=== PATIENT | female | born 1980 | race Caucasian/White ===

== ENCOUNTER → 2017-02-13 | Outpatient (CLI) | payer OTHER | LOC: MW.CHFP 14:09 | PROVIDERS: ATTEND Emergency Medicine | DX: E03.9 Hypothyroidism, unspecified (principal) | CPT/HCPCS: 36415; 84443 ==

== ENCOUNTER 2019-02-05 05:14 | Inpatient (IN) | payer OTHER ==
[2019-02-05] MEDS ORDERED: Methylergonovine 0.2 MG/1 ML Amp IM PRN (05:21)
[2019-02-05] MEDS ORDERED: Water For Irrigation,Sterile 1,000 ML Container IRR PRN (05:21)
[2019-02-05] MEDS ORDERED: Lidocaine 1% 50 ML MDV INJECT PRN (05:21)
[2019-02-05] MEDS ORDERED: Butorphanol 1 MG/ML SDV IVPUSH PRN (05:21)
[2019-02-05] MEDS ORDERED: Nalbuphine 10 MG/1 ML Vial IVPUSH PRN (05:21)
[2019-02-05] MEDS ORDERED: Misoprostol 200 MCG Tab PO PRN (05:21)
[2019-02-05] MEDS ORDERED: Carboprost Tromethamine 250 MCG/1 ML Amp IM PRN (05:21)
[2019-02-05] MEDS ORDERED: Sodium Chloride 0.9% 10 ML SDV IV PRN (05:21)
[2019-02-05] MEDS ORDERED: Ondansetron 4 MG/2 ML SDV IV PRN (05:21)
[2019-02-05] MEDS ORDERED: Terbutaline 1 MG/ML SDV SUBCUT PRN (05:21)
[2019-02-05] MEDS ORDERED: Tranexamic Acid 1,000 MG in Sodium Chloride 0.9% 100 ML IV PRN (05:21)
[2019-02-05] MEDS ORDERED: Misoprostol 25 MCG (1/4 of 100 MCG) Tab VAG PRN ×2 (05:21)
[2019-02-05] MEDS ORDERED: Sodium Chloride 0.9% 10 ML Syringe FLUSH PRN (05:21)
[2019-02-05] MEDS ORDERED: Sodium Chloride 0.9% 2.5 ML Syringe FLUSH PRN (05:21)
[2019-02-05] MEDS ORDERED: Misoprostol 25 MCG (1/4 of 100 MCG) Tab PO ONE (05:28)
[2019-02-05] MEDS ORDERED: Oxytocin/0.9 % Sodium Chloride 30 UNIT/500 ML BAG IV SCH ×2 (05:30)
--- NOTE | 2019-02-05 09:56 | PCM.LDHP ---
L&D History of Present Illness - General Date of Service: 02/05/19 Admit Problem/Dx: Patient Status Order with Admit Dx/Problem 02/05/19 05:21 Patient Status [ADT] Routine Admission Diagnosis/Problem Admission Diagnosis/Problem Source of Information: Patient History Limitations: Reports: No Limitations - History of Present Illness Improves with: Reports: None Worsens with: Reports: None Associated Symptoms: Reports: N - Related Data Allergies/Adverse Reactions: Allergies Allergy/AdvReac Type Severity Reaction Status Date / Time No Known Allergies Allergy Verified 11/04/18 09:56 Home Medications: Home Meds Levothyroxine Sodium 1 tab PO DAILY 01/01/16 [History] Past Medical History - Past Health History Medical/Surgical History: Denies Medical/Surgical History 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 Musculoskeletal History: fracture on both wrist Psychiatric History: Reports: Depression Other Psychiatric History: post depression X3 Endocrine/Metabolic History: Reports: Hypothyroidism - Infectious Disease History Infectious Disease History: Reports: Chicken Pox Social & Family History - Family History Family Medical History: Noncontributory - Tobacco Use Smoking Status *Q: Never Smoker Second Hand Smoke Exposure: No - Caffeine Use Caffeine Use: Reports: None - Recreational Drug Use Recreational Drug Use: No H&P Review of Systems - Review of Systems: Review Of Systems: See Below General: Reports: No Symptoms HEENT: Reports: No Symptoms Pulmonary: Reports: No Symptoms Cardiovascular: Reports: No Symptoms Gastrointestinal: Reports: No Symptoms Genitourinary: Reports: No Symptoms Musculoskeletal: Reports: No Symptoms Skin: Reports: No Symptoms Psychiatric: Reports: No Symptoms Neurological: Reports: No Symptoms Hematologic/Lymphatic: Reports: No Symptoms Immunologic: Reports: No Symptoms L&D Exam - Exam Exam: See Below - Vital Signs Weight: 125.191 kg - OB Specific Fundal Height In cm: 38 Contraction Intensity: Mild Movement: Active Heart Tones: Present Presentation: Vertex - Gonzáles Score Gonzáles Score Cervix Position: Midposition Gonzáles Score Consistency: Medium Gonzáles Score Effacement: 51-70% Gonzáles Score Dilation: 1-2 cm Gonzáles Score Infant's Station: -2 Gonzáles Score Total: 6 - Exam General: Alert, Oriented HEENT: PERRLA, Conjunctiva Clear, EACs Clear, EOMI, Hearing Intact, Mucosa Moist & [place], Nares Patent, Normal Nasal Septum, Posterior Pharynx Clear, TMs Clear Neck: Supple, Trachea Midline Lungs: Clear to Auscultation, Normal Respiratory Effort Cardiovascular: Regular Rate, Regular Rhythm GI/Abdominal Exam: Normal Bowel Sounds, Soft, Non-Tender, No Organomegaly, No Distention, No Abnormal Bruit, No Mass, Pelvis Stable Rectal Exam: Normal Exam, Normal Rectal Tone Genitourinary: Normal external exam, Normal bimanual exam, Normal speculum exam Back Exam: Normal Inspection, Full Range of Motion Extremities: Normal Inspection, Normal Range of Motion, Non-Tender, No Pedal Edema, Normal Capillary Refill Skin: Warm, Dry, Intact Neurological: Cranial Nerves Intact, Reflexes Equal Bilateral Psychiatric: Alert, Normal Affect, Normal Mood - Patient Data Lab Results Last 24 hrs: Laboratory Results - last 24 hr 02/05/19 02/05/19 Range/Units 06:00 06:00 WBC 11.48 H (4.0-11.0) K/uL RBC 3.87 L (4.30-5.90) M/uL Hgb 11.8 L (12.0-16.0) g/dL Hct 35.6 L (36.0-46.0) % MCV 92.0 (80.0-98.0) fL MCH 30.5 (27.0-32.0) pg MCHC 33.1 (31.0-37.0) g/dL RDW Std Deviation 54.9 (28.0-62.0) fl RDW Coeff of Danyell 16 H (11.0-15.0) % Plt Count 171 (150-400) K/uL MPV 11.20 (7.40-12.00) fL Nucleated RBC % 0.0 /100WBC Nucleated RBCs # 0 K/uL Blood Type A POSITIVE Antibody Screen NEGATIVE Result Diagrams: 02/05/19 06:00 Problem List Initiated/Reviewed/Updated: Yes Orders Last 24hrs: Active Orders 24 hr Category Date Time Status Patient Status [ADT] Routine ADT 02/05/19 05:21 Active Bedrest Bathroom Privileges [RC] ASDIRECTED Care 02/05/19 05:21 Active Communication Order [RC] ASDIRECTED Care 02/05/19 05:21 Active Communication Order [RC] ASDIRECTED Care 02/05/19 05:21 Active Communication Order [RC] ASDIRECTED Care 02/05/19 05:21 Active May Shower [RC] ASDIRECTED Care 02/05/19 05:21 Active Notify Provider [RC] PRN Care 02/05/19 05:21 Active Notify Provider [RC] PRN Care 02/05/19 05:21 Active Notify Provider [RC] PRN Care 02/05/19 05:21 Active Notify Provider [RC] STAT Care 02/05/19 05:21 Active Oxygen Therapy [RC] ASDIRECTED Care 02/05/19 05:21 Active Up ad Yue [RC] ASDIRECTED Care 02/05/19 05:21 Active Vital Signs [RC] PER UNIT ROUTINE Care 02/05/19 05:21 Active Vital Signs [RC] PER UNIT ROUTINE Care 02/05/19 05:21 Active Regular Diet [DIET] Diet 02/05/19 Breakfast Active Butorphanol [Stadol] Med 02/05/19 05:21 Active 1 mg IVPUSH Q1H PRN Carboprost Tromethamine [Hemabate DS] Med 02/05/19 05:21 Active 250 mcg IM ASDIRECTED PRN Lactated Ringers [Ringers, Lactated] 1,000 ml Med 02/05/19 05:30 Active IV ASDIRECTED Lidocaine 1% [Xylocaine 1%] Med 02/05/19 05:21 Active 50 ml INJECT ONETIME PRN Methylergonovine [Methergine] Med 02/05/19 05:21 Active 0.2 mg IM ASDIRECTED PRN Nalbuphine [Nubain] Med 02/05/19 05:21 Active 10 mg IVPUSH Q1H PRN Ondansetron [Zofran] Med 02/05/19 05:21 Active 4 mg IV Q6H PRN Oxytocin/0.9 % Sodium Chloride [Oxytocin 30 Unit/500 ML Med 02/05/19 05:30 Active -NS] 30 unit in 500 ml IV TITRATE Oxytocin/0.9 % Sodium Chloride [Oxytocin 30 Unit/500 ML Med 02/05/19 05:30 Active -NS] 30 unit in 500 ml IV TITRATE Sodium Chloride 0.9% [Normal Saline] Med 02/05/19 05:21 Active 10 ml IV ASDIRECTED PRN Sodium Chloride 0.9% [Saline Flush] Med 02/05/19 05:21 Active 10 ml FLUSH ASDIRECTED PRN Sodium Chloride 0.9% [Saline Flush] Med 02/05/19 05:21 Active 2.5 ml FLUSH ASDIRECTED PRN Terbutaline [Brethine] Med 02/05/19 05:21 Active 0.25 mg SUBCUT ASDIRECTED PRN Tranexamic Acid [Cyklokapron] 1,000 mg Med 02/05/19 05:21 Active Sodium Chloride 0.9% [Normal Saline] 100 ml IV ONETIME Water For Irrigation,Sterile [Sterile Water for Med 02/05/19 05:21 Active Irrigation] 1,000 ml IRR ASDIRECTED PRN miSOPROStol [Cytotec] Med 02/05/19 05:21 Active 200 mcg PO ONETIME PRN miSOPROStol [Cytotec] Med 02/05/19 05:21 Active 25 mcg VAG ONETIME PRN miSOPROStol [Cytotec] Med 02/05/19 05:21 Active 25 mcg VAG Q4H PRN Scalp Electrode [WOMSER] Per Unit Routine Oth 02/05/19 05:21 Ordered Medication Administration Instruction [OM.PC] Q3H Oth 02/05/19 05:30 Ordered Peripheral IV Insertion Adult [OM.PC] Routine Oth 02/05/19 05:21 Ordered Resuscitation Status Routine Resus Stat 02/05/19 05:21 Ordered Medication Orders Butorphanol Tartrate (Stadol) 1 mg IVPUSH Q1H PRN PRN Reason: Pain Carboprost Tromethamine (Hemabate Ds) 250 mcg IM ASDIRECTED PRN PRN Reason: Post Hemorrhage Lactated Ringer's (Ringers, Lactated) 1,000 mls @ 150 mls/hr IV ASDIRECTED JENNIFER Oxytocin/Sodium Chloride (Oxytocin 30 Unit/500 Ml-Ns) 30 unit in 500 mls @ 999 mls/hr IV TITRATE JENNIFER Oxytocin/Sodium Chloride (Oxytocin 30 Unit/500 Ml-Ns) 30 unit in 500 mls @ 2 mls/hr IV TITRATE JENNIFER; Protocol Tranexamic Acid 1,000 mg/ (Sodium Chloride) 110 mls @ 660 mls/hr IV ONETIME PRN PRN Reason: Bleeding Lidocaine HCl (Xylocaine 1%) 50 ml INJECT ONETIME PRN PRN Reason: Laceration repair Methylergonovine Maleate (Methergine) 0.2 mg IM ASDIRECTED PRN PRN Reason: Post Hemorrhage Misoprostol (Cytotec) 200 mcg PO ONETIME PRN PRN Reason: Post Hemorrhage Misoprostol (Cytotec) 25 mcg VAG ONETIME PRN PRN Reason: Cervical Ripening Last Admin: 02/05/19 06:33 Dose: 25 mcg Misoprostol (Cytotec) 25 mcg VAG Q4H PRN PRN Reason: Cervical Ripening Nalbuphine HCl (Nubain) 10 mg IVPUSH Q1H PRN PRN Reason: Pain (severe 7-10) Ondansetron HCl (Zofran) 4 mg IV Q6H PRN PRN Reason: Nausea/Vomiting Sodium Chloride (Saline Flush) 10 ml FLUSH ASDIRECTED PRN PRN Reason: Keep Vein Open Sodium Chloride (Saline Flush) 2.5 ml FLUSH ASDIRECTED PRN PRN Reason: Keep Vein Open Sodium Chloride (Normal Saline) 10 ml IV ASDIRECTED PRN PRN Reason: IV Use Sterile Water (Sterile Water For Irrigation) 1,000 ml IRR ASDIRECTED PRN PRN Reason: delivery Terbutaline Sulfate (Brethine) 0.25 mg SUBCUT ASDIRECTED PRN PRN Reason: Tacysystole Assessment/Plan Comment:: IUP 38 wks admitted for elective induction because of advance maternal age.
--- NOTE | 2019-02-05 11:26 | PCM.PREANE ---
Preanesthetic Assessment - Anesthesia/Transfusion/Family Hx Anesthesia History: No Prior Anesthesia Family History of Anesthesia Reaction: No Transfusion History: No Prior Transfusion(s) - Review of Systems General: No Symptoms Pulmonary: No Symptoms Cardiovascular: No Symptoms Gastrointestinal: No Symptoms Neurological: No Symptoms Other: Reports: None - Physical Assessment Height: 5 ft 4 in Weight: 125.191 kg ASA Class: 2 Mental Status: Alert & Oriented x3 Airway Class: Mallampati = 2 Dentition: Reports: Normal Dentition Thyro-Mental Finger Breadths: 3 Mouth Opening Finger Breadths: 3 ROM/Head Extension: Full Lungs: Clear to Auscultation, Normal Respiratory Effort Cardiovascular: Regular Rate, Regular Rhythm - Lab Values: Laboratory Last Values WBC 11.48 K/uL (4.0-11.0) H 02/05/19 06:00 RBC 3.87 M/uL (4.30-5.90) L 02/05/19 06:00 Hgb 11.8 g/dL (12.0-16.0) L 02/05/19 06:00 Hct 35.6 % (36.0-46.0) L 02/05/19 06:00 MCV 92.0 fL (80.0-98.0) 02/05/19 06:00 MCH 30.5 pg (27.0-32.0) 02/05/19 06:00 MCHC 33.1 g/dL (31.0-37.0) 02/05/19 06:00 RDW Std Deviation 54.9 fl (28.0-62.0) 02/05/19 06:00 RDW Coeff of Danyell 16 % (11.0-15.0) H 02/05/19 06:00 Plt Count 171 K/uL (150-400) 02/05/19 06:00 MPV 11.20 fL (7.40-12.00) 02/05/19 06:00 Nucleated RBC % 0.0 /100WBC 02/05/19 06:00 Nucleated RBCs # 0 K/uL 02/05/19 06:00 Blood Type A POSITIVE 02/05/19 06:00 Antibody Screen NEGATIVE 02/05/19 06:00 - Allergies Allergies/Adverse Reactions: Allergies Allergy/AdvReac Type Severity Reaction Status Date / Time No Known Allergies Allergy Verified 11/04/18 09:56 - Acknowledgements Anesthesia Type Planned: Epidural Pt an Appropriate Candidate for the Planned Anesthesia: Yes Alternatives and Risks of Anesthesia Discussed w Pt/Guardian: Yes Pt/Guardian Understands and Agrees with Anesthesia Plan: Yes PreAnesthesia Questionnaire - Past Health History Medical/Surgical History: Denies Medical/Surgical History HEENT History: Reports: None Cardiovascular History: Reports: None Respiratory History: Reports: None Gastrointestinal History: Reports: GERD Genitourinary History: Reports: None 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 LMP (Approximate): Other Musculoskeletal History: fracture on both wrist Neurological History: Reports: None Psychiatric History: Reports: Depression Other Psychiatric History: post depression X3 Endocrine/Metabolic History: Reports: Hypothyroidism, Obesity/BMI 30+ Hematologic History: Reports: None Immunologic History: Reports: None Oncologic (Cancer) History: Reports: None Dermatologic History: Reports: None - Infectious Disease History Infectious Disease History: Reports: Chicken Pox - SUBSTANCE USE Smoking Status *Q: Never Smoker Second Hand Smoke Exposure: No Recreational Drug Use History: No - HOME MEDS Home Medications: Home Meds Levothyroxine Sodium 1 tab PO DAILY 01/01/16 [History] - CURRENT (IN HOUSE) MEDS Current Meds: Current Medications Butorphanol Tartrate (Stadol) 1 mg IVPUSH Q1H PRN PRN Reason: Pain Carboprost Tromethamine (Hemabate Ds) 250 mcg IM ASDIRECTED PRN PRN Reason: Post Hemorrhage Lactated Ringer's (Ringers, Lactated) 1,000 mls @ 150 mls/hr IV ASDIRECTED JENNIFER Oxytocin/Sodium Chloride (Oxytocin 30 Unit/500 Ml-Ns) 30 unit in 500 mls @ 999 mls/hr IV TITRATE JENNIFER Oxytocin/Sodium Chloride (Oxytocin 30 Unit/500 Ml-Ns) 30 unit in 500 mls @ 2 mls/hr IV TITRATE JENNIFER; Protocol Tranexamic Acid 1,000 mg/ (Sodium Chloride) 110 mls @ 660 mls/hr IV ONETIME PRN PRN Reason: Bleeding Lidocaine HCl (Xylocaine 1%) 50 ml INJECT ONETIME PRN PRN Reason: Laceration repair Methylergonovine Maleate (Methergine) 0.2 mg IM ASDIRECTED PRN PRN Reason: Post Hemorrhage Misoprostol (Cytotec) 200 mcg PO ONETIME PRN PRN Reason: Post Hemorrhage Misoprostol (Cytotec) 25 mcg VAG ONETIME PRN PRN Reason: Cervical Ripening Last Admin: 02/05/19 06:33 Dose: 25 mcg Misoprostol (Cytotec) 25 mcg VAG Q4H PRN PRN Reason: Cervical Ripening Nalbuphine HCl (Nubain) 10 mg IVPUSH Q1H PRN PRN Reason: Pain (severe 7-10) Ondansetron HCl (Zofran) 4 mg IV Q6H PRN PRN Reason: Nausea/Vomiting Sodium Chloride (Saline Flush) 10 ml FLUSH ASDIRECTED PRN PRN Reason: Keep Vein Open Sodium Chloride (Saline Flush) 2.5 ml FLUSH ASDIRECTED PRN PRN Reason: Keep Vein Open Sodium Chloride (Normal Saline) 10 ml IV ASDIRECTED PRN PRN Reason: IV Use Sterile Water (Sterile Water For Irrigation) 1,000 ml IRR ASDIRECTED PRN PRN Reason: delivery Terbutaline Sulfate (Brethine) 0.25 mg SUBCUT ASDIRECTED PRN PRN Reason: Tacysystole Discontinued Medications Misoprostol (Cytotec) 25 mcg PO ONETIME ONE Stop: 02/05/19 05:29 Last Admin: 02/05/19 06:33 Dose: 25 mcg
[2019-02-05] MEDS: Lactated Ringers 1,000 ML IV SCH ×2 (11:30→12:15)
[2019-02-05] MEDS ORDERED: Witch Hazel Medicated Pads 40/Jar TOP PRN (18:18)
[2019-02-05] MEDS ORDERED: Ibuprofen 800 MG Tab PO PRN (18:18)
[2019-02-05] MEDS ORDERED: oxyCODONE 5 MG Tab PO PRN (18:18)
[2019-02-05] MEDS ORDERED: Docusate Sodium 100 MG Cap PO PRN (18:18)
[2019-02-05] MEDS ORDERED: Benzocaine/Menthol 20%-0.5% Spray 78 GM Cannister TOP PRN (18:18)
[2019-02-05] MEDS ORDERED: Ibuprofen 400 MG Tab PO PRN (18:18)
[2019-02-05] MEDS ORDERED: Acetaminophen 500 MG Tab PO PRN ×2 (18:18)
[2019-02-05] MEDS ORDERED: Bisacodyl 10 MG Supp RECTAL PRN (18:18)
[2019-02-05] MEDS ORDERED: Lanolin 100% Cream 7 GM Tube TOP PRN (18:18)
--- NOTE | 2019-02-05 23:10 | OR ---
SURGEON: Bhargav Hewitt MD DATE OF PROCEDURE: This patient is 38-year-old. She is para 7-0-0-7. She is followed in our clinic primarily by me. She had no complication. Her GBS status is negative. Her diabetes screen is negative. The patient is Rh positive. She is admitted for induction at 38+ because of advanced maternal age. The patient induced with Cytotec and Pitocin. She responded very well. She had spontaneous rupture of membrane of clear fluid. She had epidural anesthesia for labor analgesia, and the patient was able to accomplish normal spontaneous controlled vaginal delivery of a male fetus, who cried immediately. score reported to be 8 and 9. There was 1 nuchal cord, and the placenta delivered spontaneous, complete, and intact. Estimated blood loss was 250 to 300 mL. heart rate was category 1 through the entire process of labor. There was no complication in the process of the labor and delivery. LENCHO / MEGA /[id number]
--- NOTE | 2019-02-06 08:03 | PCM48HPAN ---
Post Anesthesia Note - EVALUATION WITHIN 48HRS OF ANESTHETIC Vital Signs in Normal Range: Yes Patient Participated in Evaluation: Yes Respiratory Function Stable: Yes Airway Patent: Yes Cardiovascular Function Stable: Yes Hydration Status Stable: Yes Pain Control Satisfactory: Yes Nausea and Vomiting Control Satisfactory: Yes Mental Status Recovered: Yes Resp Rate: 16 - COMMENTS/OBSERVATIONS Free Text/Narrative:: No anesthesia complications.
--- NOTE | 2019-02-06 18:24 | PCM.DCSUM1 ---
Discharge Summary - Hospital Course Free Text/Narrative:: Discharge home with infant. Follow up in 6 weeks for post . Diagnosis: Stroke: No - Discharge Data Discharge Date: 02/06/19 Discharge Disposition: Home, Self-Care 01 Condition: Good - Discharge Diagnosis/Problem(s) (1) (normal spontaneous vaginal delivery) SNOMED Code(s): 49164547, [id number] ICD Code: O80 - ENCOUNTER FOR FULL-TERM UNCOMPLICATED DELIVERY Status: Acute Priority: High Current Visit: Yes - Patient Instructions Diet: Usual Diet as Tolerated Activity: As Tolerated, No Strenuous Activities, Rest and Relax Today Driving: May Drive Today Showering/Bathing: May Shower Notify Provider of: Fever, Increased Pain, Swelling and Redness, Nausea and/or Vomiting Other/Special Instructions: Discharge home with infant. Follow up in 6 weeks for post . - Discharge Plan *PRESCRIPTION DRUG MONITORING PROGRAM REVIEWED*: Not Applicable *COPY OF PRESCRIPTION DRUG MONITORING REPORT IN PATIENT RAMSEY: Not Applicable Home Medications: Home Meds Levothyroxine Sodium 1 tab PO DAILY 01/01/16 [History] Referrals: [facility] [Outside] Bhargav Hewitt MD [Physician] - 03/16/19 1:30 pm - Discharge Summary/Plan Comment DC Time >30 min.: Yes - General Info Date of Service: 02/06/19 Admission Dx/Problem (Free Text: Patient Status Order with Admit Dx/Problem 02/05/19 05:21 Patient Status [ADT] Routine Admission Diagnosis/Problem Admission Diagnosis/Problem Functional Status: Reports: Pain Controlled, Tolerating Diet, Ambulating, Urinating - Review of Systems General: Reports: No Symptoms HEENT: Reports: No Symptoms Pulmonary: Reports: No Symptoms Cardiovascular: Reports: No Symptoms Gastrointestinal: Reports: No Symptoms Genitourinary: Reports: No Symptoms Musculoskeletal: Reports: No Symptoms Skin: Reports: No Symptoms Neurological: Reports: No Symptoms Psychiatric: Reports: No Symptoms - Patient Data Vitals - Most Recent: Last Vital Signs Temp 36.4 C 02/06/19 17:17 Pulse 73 02/06/19 17:17 Resp 16 02/06/19 17:17 BP 113/61 02/06/19 17:17 Pulse Ox 97 02/06/19 17:17 Weight - Most Recent: 125.191 kg Lab Results - Last 24 hrs: Laboratory Results - last 24 hr 02/06/19 Range/Units 05:38 Hgb 11.0 L (12.0-16.0) g/dL Hct 33.8 L (36.0-46.0) % Med Orders - Current: Current Medications Acetaminophen (Tylenol Extra Strength) 500 mg PO Q4H PRN PRN Reason: Pain Acetaminophen (Tylenol Extra Strength) 1,000 mg PO Q4H PRN PRN Reason: Pain Benzocaine/Menthol (Dermoplast Pain Relief 20%-0.5% [place]) 0 gm TOP ASDIRECTED PRN PRN Reason: Perineal Comfort Measure Bisacodyl (Dulcolax) 10 mg RECTAL ONETIME PRN PRN Reason: Constipation Butorphanol Tartrate (Stadol) 1 mg IVPUSH Q1H PRN PRN Reason: Pain Carboprost Tromethamine (Hemabate Ds) 250 mcg IM ASDIRECTED PRN PRN Reason: Post Hemorrhage Docusate Sodium (Colace) 100 mg PO BID PRN PRN Reason: Constipation Emollient Ointment (Lansinoh Hpa) 0 gm TOP ASDIRECTED PRN PRN Reason: Sore Nipples Lactated Ringer's (Ringers, Lactated) 1,000 mls @ 150 mls/hr IV ASDIRECTED JENNIFER Last Admin: 02/05/19 12:15 Dose: 150 mls/hr Oxytocin/Sodium Chloride (Oxytocin 30 Unit/500 Ml-Ns) 30 unit in 500 mls @ 999 mls/hr IV TITRATE JENNIFER Oxytocin/Sodium Chloride (Oxytocin 30 Unit/500 Ml-Ns) 30 unit in 500 mls @ 2 mls/hr IV TITRATE [facility]; Protocol Last Titration: 02/05/19 17:36 Dose: 6 munits/min, 6 mls/hr Tranexamic Acid 1,000 mg/ (Sodium Chloride) 110 mls @ 660 mls/hr IV ONETIME PRN PRN Reason: Bleeding Ibuprofen (Motrin) 400 mg PO Q4H PRN PRN Reason: Pain Ibuprofen (Motrin) 800 mg PO Q6H PRN PRN Reason: Pain Lidocaine HCl (Xylocaine 1%) 50 ml INJECT ONETIME PRN PRN Reason: Laceration repair Methylergonovine Maleate (Methergine) 0.2 mg IM ASDIRECTED PRN PRN Reason: Post Hemorrhage Misoprostol (Cytotec) 200 mcg PO ONETIME PRN PRN Reason: Post Hemorrhage Misoprostol (Cytotec) 25 mcg VAG ONETIME PRN PRN Reason: Cervical Ripening Last Admin: 02/05/19 06:33 Dose: 25 mcg Misoprostol (Cytotec) 25 mcg VAG Q4H PRN PRN Reason: Cervical Ripening Nalbuphine HCl (Nubain) 10 mg IVPUSH Q1H PRN PRN Reason: Pain (severe 7-10) Ondansetron HCl (Zofran) 4 mg IV Q6H PRN PRN Reason: Nausea/Vomiting Oxycodone HCl (Oxycodone) 5 mg PO Q2H PRN PRN Reason: Pain Sodium Chloride (Saline Flush) 10 ml FLUSH ASDIRECTED PRN PRN Reason: Keep Vein Open Sodium Chloride (Saline Flush) 2.5 ml FLUSH ASDIRECTED PRN PRN Reason: Keep Vein Open Sodium Chloride (Normal Saline) 10 ml IV ASDIRECTED PRN PRN Reason: IV Use Sterile Water (Sterile Water For Irrigation) 1,000 ml IRR ASDIRECTED PRN PRN Reason: delivery Terbutaline Sulfate (Brethine) 0.25 mg SUBCUT ASDIRECTED PRN PRN Reason: Tacysystole Witch Dolores (Tucks) 1 pad TOP ASDIRECTED PRN PRN Reason: comfort care Discontinued Medications Fentanyl/Bupivacaine HCl ([id number] 2 Mcg/Ml-0.125%) Confirm Administered Dose 100 mls @ as directed .ROUTE .STK-MED ONE Stop: 02/05/19 11:29 Misoprostol (Cytotec) 25 mcg PO ONETIME ONE Stop: 02/05/19 05:29 Last Admin: 02/05/19 06:33 Dose: 25 mcg - Exam General: Reports: Alert, Oriented, Cooperative Lungs: Reports: Normal Respiratory Effort GI/Abdominal Exam: Soft, Non-Tender (Female) Exam: Deferred, Vaginal Bleeding Rectal (Female) Exam: Deferred Skin: Reports: Warm, Dry, Intact Neurological: Reports: No New Focal Deficit, Normal Speech, Normal Tone, Strength Equal Bilateral Psy/Mental Status: Reports: Alert, Normal Affect, Normal Mood
[2019-02-06 19:39] VITALS: BP 111/59
== END 2019-02-06 20:30 | disposition home or self-care (01) | DRG 807 ==
LOC: MW.OBCHECK 05:14 → MW.OB 05:18 → OBSVTOIN 18:12 → MW.OB 18:12
PROVIDERS: ADMIT Obstetrics & Gynecology; ATTEND Obstetrics & Gynecology
PROC: 10E0XZZ Delivery of Products of Conception, External Approach (ICD-10-PCS; principal; 2019-02-05)
PROC: 3E033VJ Introduction of Other Hormone into Peripheral Vein, Percutaneous Approach (ICD-10-PCS; 2019-02-05)
PROC: 3E0P7VZ Introduction of Hormone into Female Reproductive, Via Natural or Artificial Opening (ICD-10-PCS; 2019-02-05)
PROC: 3E0R3BZ Introduction of Anesthetic Agent into Spinal Canal, Percutaneous Approach (ICD-10-PCS; 2019-02-05)
PROC: 00HU33Z Insertion of Infusion Device into Spinal Canal, Percutaneous Approach (ICD-10-PCS; 2019-02-05)
DX: O69.81X0 Labor and delivery complicated by cord around neck, without compression, not applicable or unspecified (principal); Z37.0 Single live birth; Z3A.38 38 weeks gestation of pregnancy
CPT/HCPCS: 36415; 51702; 59025; 59409; 85014; 85018; 85027; 86850; 86900; 86901; A9270-GY; J2590; J7120

== ENCOUNTER 2021-06-26 11:00 | Inpatient (IN) | payer BC ==
[2021-06-26] MEDS: Lactated Ringers 1,000 ML IV SCH ×2 (11:30→12:55)
[2021-06-26] MEDS ORDERED: Ampicillin 2 GM in Sodium Chloride 0.9% 100 ML IV ONE (11:30)
[2021-06-26] MEDS ORDERED: Misoprostol 200 MCG Tab PO PRN (11:53)
[2021-06-26] MEDS ORDERED: Tranexamic Acid 1,000 MG in Sodium Chloride 0.9% 100 ML IV PRN (11:53)
[2021-06-26] MEDS ORDERED: Sodium Chloride 0.9% 2.5 ML Syringe FLUSH PRN (11:53)
[2021-06-26] MEDS ORDERED: Nalbuphine 10 MG/1 ML Vial IVPUSH PRN (11:53)
[2021-06-26] MEDS ORDERED: Sodium Chloride 0.9% 10 ML SDV IV PRN (11:53)
[2021-06-26] MEDS ORDERED: Lidocaine 1% 50 ML MDV INJECT PRN (11:53)
[2021-06-26] MEDS ORDERED: Butorphanol 1 MG/ML SDV IVPUSH PRN (11:53)
[2021-06-26] MEDS ORDERED: Carboprost Tromethamine 250 MCG/1 ML Amp IM PRN (11:53)
[2021-06-26] MEDS ORDERED: Sodium Chloride 0.9% 10 ML Syringe FLUSH PRN (11:53)
[2021-06-26] MEDS ORDERED: Methylergonovine 0.2 MG/1 ML Amp IM PRN (11:53)
[2021-06-26] MEDS ORDERED: Water For Irrigation,Sterile 1,000 ML Container IRR PRN (11:53)
[2021-06-26] MEDS ORDERED: Oxytocin/0.9 % Sodium Chloride 30 UNIT/500 ML BAG IV SCH (12:00)
[2021-06-26] MEDS ORDERED: Ropivacaine HCl/PF 200 ML ONE (12:16)
[2021-06-26] MEDS ORDERED: Bupivacaine 0.25% 10 ML SDV ONE (12:16)
--- NOTE | 2021-06-26 13:47 | PCM.SN.2 ---
Time Documentation - Pre-Procedure Checklist Attending Provider Aware: Yes Chart Reviewed: Yes Consent Signed: Yes Labs Reviewed: Yes VS/FHR Reviewed: Yes Patient Identification Confirmation Method: Reports: ID Band Visual, Verbal Patient Pt an Appropriate Candidate for the Planned Anesthesia: Yes Alternatives and Risks of Anesthesia Discussed w Pt/Guardian: Yes - Procedure Procedure Start Date: 06/26/21 Procedure Start Time: 12:[address]: Reports: Blood Pressure, Heart Rate, SPO2 Functional IV: Yes Safety Measures: Reports: Patient Identified, Procedure Verified, Site Verified, Procedure Time Out Local Anesthetic: Reports: Intradermal Wheal w Lidocaine 1% Regional Placement Level: Reports: L4-5 Needle: Reports: 17 g Touhy Approach: Reports: Midline Technique: Reports: NATY Plastic Syringe Parasthesia: Reports: None Fluid Obtained: Reports: None Test Dose Time: 12:45 Test Dose Medication: Reports: Lidocaine 1.5% w Epinephrine 1:200,000 Test Dose Response: Reports: Negative Patient Position Post Placement: Reports: Semi-fowlers/ISABEL VS and FHR Monitored in Unit Post Placement: Yes Procedure End Date: 06/26/21 Procedure End Time: 13:20
--- NOTE | 2021-06-26 13:53 | PCM.PREANE ---
Preanesthetic Assessment - Anesthesia/Transfusion/Family Hx Anesthesia History: Prior Anesthesia Without Reaction Transfusion History: Unknown Intubation History: Unknown - Review of Systems General: No Symptoms Pulmonary: No Symptoms Cardiovascular: No Symptoms Gastrointestinal: No Symptoms Neurological: No Symptoms Other: Reports: None - Physical Assessment NPO Status Date: 06/26/21 NPO Status Time: 11:00 Height: 5 ft 4 in Weight: 122.016 kg ASA Class: 2 Mental Status: Alert & Oriented x3 Airway Class: Mallampati = 3 Dentition: Reports: Normal Dentition Thyro-Mental Finger Breadths: 3 Mouth Opening Finger Breadths: 3 ROM/Head Extension: Full Lungs: Clear to Auscultation, Normal Respiratory Effort Cardiovascular: Regular Rate, Regular Rhythm - Lab Values: Laboratory Last Values WBC 11.74 K/uL (4.0-11.0) H 06/26/21 11:28 RBC 3.90 M/uL (4.30-5.90) L 06/26/21 11:28 Hgb 11.7 g/dL (12.0-16.0) L 06/26/21 11:28 Hct 34.3 % (36.0-46.0) L 06/26/21 11:28 MCV 87.9 fL (80.0-98.0) 06/26/21 11:28 MCH 30.0 pg (27.0-32.0) 06/26/21 11:28 MCHC 34.1 g/dL (31.0-37.0) 06/26/21 11:28 RDW Std Deviation 54.1 fl (28.0-62.0) 06/26/21 11:28 RDW Coeff of Danyell 17 % (11.0-15.0) H 06/26/21 11:28 Plt Count 228 K/uL (150-400) 06/26/21 11:28 MPV 11.00 fL (7.40-12.00) 06/26/21 11:28 Nucleated RBC % 0.0 /100WBC 06/26/21 11:28 Nucleated RBCs # 0 K/uL 06/26/21 11:28 SARS-CoV-2 RNA (KING) NEGATIVE (NEGATIVE) 06/26/21 11:28 Blood Type A POSITIVE 06/26/21 11:28 Crossmatch See Detail 06/26/21 11:28 - Allergies Allergies/Adverse Reactions: Allergies Allergy/AdvReac Type Severity Reaction Status Date / Time No Known Allergies Allergy Verified 06/26/21 11:57 - Acknowledgements Anesthesia Type Planned: Epidural Pt an Appropriate Candidate for the Planned Anesthesia: Yes Alternatives and Risks of Anesthesia Discussed w Pt/Guardian: Yes Pt/Guardian Understands and Agrees with Anesthesia Plan: Yes PreAnesthesia Questionnaire - Past Health History Medical/Surgical History: Denies Medical/Surgical History HEENT History: Reports: None Cardiovascular History: Reports: None Respiratory History: Reports: None Gastrointestinal History: Reports: GERD Genitourinary History: Reports: None HEALTH DIRECTOR History: Reports: Other Musculoskeletal History: fracture on both wrist Neurological History: Reports: None Psychiatric History: Reports: Depression Other Psychiatric History: post depression X3 Endocrine/Metabolic History: Reports: Hypothyroidism, Obesity/BMI 30+ Hematologic History: Reports: None Immunologic History: Reports: None Oncologic (Cancer) History: Reports: None Dermatologic History: Reports: None - Infectious Disease History Infectious Disease History: Reports: Chicken Pox - HOME MEDS Home Medications: Home Meds Levothyroxine Sodium 1 tab PO DAILY 01/01/16 [History] Pnv No.95/Ferrous Fum/Folic AC [ Caplet] 1 tab PO DAILY 06/26/21 [ History] buPROPion HCL [Bupropion Xl] 300 mg PO DAILY 06/26/21 [History] - CURRENT (IN HOUSE) MEDS Current Meds: Current Medications Butorphanol Tartrate (Butorphanol 1 Mg/Ml Sdv) 1 mg IVPUSH Q1H PRN PRN Reason: Pain (severe 7-10) Carboprost Tromethamine (Carboprost Tromethamine 250 Mcg/1 Ml Amp) 250 mcg IM ASDIRECTED PRN PRN Reason: Post Hemorrhage Lactated Ringer's (Ringers, Lactated) 1,000 mls @ 150 mls/hr IV ASDIRECTED [facility] Last Admin: 06/26/21 12:55 Dose: 150 mls/hr Documented by: Oxytocin/Sodium Chloride (Oxytocin 30 Unit/500 Ml-Ns) 30 unit in 500 mls @ 999 mls/hr IV TITRATE JENNIFER Tranexamic Acid 1,000 mg/ (Sodium Chloride) 110 mls @ 660 mls/hr IV ONETIME PRN PRN Reason: Bleeding Ampicillin Sodium 1 gm/ Sodium (Chloride) 50 mls @ 100 mls/hr IV Q4H JENNIFER Lidocaine HCl (Lidocaine 1% 50 Ml Mdv) 50 ml INJECT ONETIME PRN PRN Reason: Laceration repair Methylergonovine Maleate (Methylergonovine 0.2 Mg/1 Ml Amp) 0.2 mg IM ASDIRECTED PRN PRN Reason: Post Hemorrhage Misoprostol (Misoprostol 200 Mcg Tab) 200 mcg PO ONETIME PRN PRN Reason: Post Hemorrhage Nalbuphine HCl (Nalbuphine 10 Mg/1 Ml Vial) 10 mg IVPUSH Q1H PRN PRN Reason: Pain (severe 7-10) Sodium Chloride (Sodium Chloride 0.9% 10 Ml Syringe) 10 ml FLUSH ASDIRECTED PRN PRN Reason: Keep Vein Open Sodium Chloride (Sodium Chloride 0.9% 2.5 Ml Syringe) 2.5 ml FLUSH ASDIRECTED PRN PRN Reason: Keep Vein Open Sodium Chloride (Sodium Chloride 0.9% 10 Ml Sdv) 10 ml IV ASDIRECTED PRN PRN Reason: IV Use Sterile Water (Water For Irrigation,Sterile 1,000 Ml Container) 1,000 ml IRR ASDIRECTED PRN PRN Reason: delivery Discontinued Medications Bupivacaine HCl (Bupivacaine 0.25% 10 Ml Sdv) Confirm Administered Dose 10 ml .ROUTE .STConyac-MED ONE Stop: 06/26/21 12:17 Ampicillin Sodium 2 gm/ Sodium (Chloride) 100 mls @ 200 mls/hr IV ONETIME ONE Stop: 06/26/21 11:59 Last Admin: 06/26/21 11:45 Dose: 200 mls/hr Documented by: Ropivacaine (Naropin 0.2%) Confirm Administered Dose 200 mls @ as directed .ROUTE .STK-MED ONE Stop: 06/26/21 12:17
--- NOTE | 2021-06-26 13:53 | PCM.POSTAN ---
POST ANESTHESIA ASSESSMENT - MENTAL STATUS Mental Status: Alert, Oriented - RESPIRATORY Respiratory Status: Respiratory Rate WNL, Airway Patent, O2 Saturation Stable - CARDIOVASCULAR CV Status: Pulse Rate WNL, Blood Pressure Stable - GASTROINTESTINAL GI Status: No Symptoms - POST OP HYDRATION Hydration Status: Adequate & Stable
[2021-06-26] MEDS ORDERED: Ampicillin 1 GM in Sodium Chloride 0.9% 50 ML IV SCH (15:30)
[2021-06-26] MEDS ORDERED: oxyCODONE 5 MG Tab PO PRN (17:37)
[2021-06-26] MEDS ORDERED: Bisacodyl 10 MG Supp RECTAL PRN (17:37)
[2021-06-26] MEDS ORDERED: Ibuprofen 800 MG Tab PO PRN (17:37)
[2021-06-26] MEDS ORDERED: Ibuprofen 400 MG Tab PO PRN (17:37)
[2021-06-26] MEDS ORDERED: Lanolin 100% Cream 7 GM Tube TOP PRN (17:37)
[2021-06-26] MEDS ORDERED: Acetaminophen 500 MG Tab PO PRN ×2 (17:37)
[2021-06-26] MEDS ORDERED: Docusate Sodium 100 MG Cap PO PRN (17:37)
[2021-06-26] MEDS ORDERED: Witch Hazel Medicated Pads 40/Jar TOP PRN (17:37)
[2021-06-26] MEDS ORDERED: Benzocaine/Menthol 20%-0.5% Spray 78 GM Cannister TOP PRN (17:37)
--- NOTE | 2021-06-26 17:44 | PCM.DEL ---
L & D Note - General Info Date of Service: 06/26/21 Mother's Due Date: 06/29/21 - Delivery Note Labor: Spontaneous Delivery Outcome: Livebirth Infant Delivery Method: Spontaneous Vaginal Delivery-Single Presentation: Left Occiput Anterior (MINH) Nuchal Cord: Present Anesthesia Type: Epidural Amniotic Fluid Description: Clear Episiotomy Type: None Laceration: None Placenta: Intact Cord: 3 Vessels Estimated Blood Loss: 100 Resuscitation Needed: No Score 1 min: 8 Score 5 min: 9 Delivery Comments (Free Text/Narrative):: Live female delivered at 1556, weight 3370g , 8/9 cord around neck reduced - General Info Date of Service: 06/26/21 - Patient Data Weight - Most Recent: 122.016 kg Lab Results Last 24 Hours: Laboratory Results - last 24 hr 06/26/21 06/26/21 06/26/21 Range/Units 11:28 11:28 11:28 WBC 11.74 H (4.0-11.0) K/uL RBC 3.90 L (4.30-5.90) M/uL Hgb 11.7 L (12.0-16.0) g/dL Hct 34.3 L (36.0-46.0) % MCV 87.9 (80.0-98.0) fL MCH 30.0 (27.0-32.0) pg MCHC 34.1 (31.0-37.0) g/dL RDW Std Deviation 54.1 (28.0-62.0) fl RDW Coeff of Danyell 17 H (11.0-15.0) % Plt Count 228 (150-400) K/uL MPV 11.00 (7.40-12.00) fL Nucleated RBC % 0.0 /100WBC Nucleated RBCs # 0 K/uL Cord VBG pH (7.25-7.45) Cord VBG Base Excess (-10--2) SARS-CoV-2 RNA (KING) NEGATIVE (NEGATIVE) Blood Type A POSITIVE Crossmatch See Detail 06/26/21 Range/Units 15:56 WBC (4.0-11.0) K/uL RBC (4.30-5.90) M/uL Hgb (12.0-16.0) g/dL Hct (36.0-46.0) % MCV (80.0-98.0) fL MCH (27.0-32.0) pg MCHC (31.0-37.0) g/dL RDW Std Deviation (28.0-62.0) fl RDW Coeff of Danyell (11.0-15.0) % Plt Count (150-400) K/uL MPV (7.40-12.00) fL Nucleated RBC % /100WBC Nucleated RBCs # K/uL Cord VBG pH 7.354 (7.25-7.45) Cord VBG Base Excess -2 (-10--2) SARS-CoV-2 RNA (KING) (NEGATIVE) Blood Type Crossmatch Med Orders - Current: Current Medications Acetaminophen (Acetaminophen 500 Mg Tab) 500 mg PO Q4H PRN PRN Reason: Pain (mild 1-3) Acetaminophen (Acetaminophen 500 Mg Tab) 1,000 mg PO Q4H PRN PRN Reason: Pain (mild 1-3) Benzocaine/Menthol (Benzocaine/Menthol 20%-0.5% [place] 78 Gm Cannister) 78 gm TOP ASDIRECTED PRN PRN Reason: Perineal Comfort Measure Bisacodyl (Bisacodyl 10 Mg Supp) 10 mg RECTAL ONETIME PRN PRN Reason: Constipation Butorphanol Tartrate (Butorphanol 1 Mg/Ml Sdv) 1 mg IVPUSH Q1H PRN PRN Reason: Pain (severe 7-10) Carboprost Tromethamine (Carboprost Tromethamine 250 Mcg/1 Ml Amp) 250 mcg IM ASDIRECTED PRN PRN Reason: Post Hemorrhage Docusate Sodium (Docusate Sodium 100 Mg Cap) 100 mg PO Q12H PRN PRN Reason: Constipation Emollient Ointment (Lanolin 100% Cream 7 Gm Tube) 0 gm TOP ASDIRECTED PRN PRN Reason: Sore Nipples Lactated Ringer's (Ringers, Lactated) 1,000 mls @ 150 mls/hr IV ASDIRECTED JENNIFER Last Admin: 06/26/21 12:55 Dose: 150 mls/hr Documented by: Oxytocin/Sodium Chloride (Oxytocin 30 Unit/500 Ml-Ns) 30 unit in 500 mls @ 999 mls/hr IV TITRATE JENNIFER Last Admin: 06/26/21 16:02 Dose: 999 mls/hr Documented by: Tranexamic Acid 1,000 mg/ (Sodium Chloride) 110 mls @ 660 mls/hr IV ONETIME PRN PRN Reason: Bleeding Ibuprofen (Ibuprofen 400 Mg Tab) 400 mg PO Q4H PRN PRN Reason: Pain (mild 1-3) Ibuprofen (Ibuprofen 800 Mg Tab) 800 mg PO Q6H PRN PRN Reason: Cramping Lidocaine HCl (Lidocaine 1% 50 Ml Mdv) 50 ml INJECT ONETIME PRN PRN Reason: Laceration repair Methylergonovine Maleate (Methylergonovine 0.2 Mg/1 Ml Amp) 0.2 mg IM ASDIRECTED PRN PRN Reason: Post Hemorrhage Last Admin: 06/26/21 16:07 Dose: 0.2 mg Documented by: Misoprostol (Misoprostol 200 Mcg Tab) 200 mcg PO ONETIME PRN PRN Reason: Post Hemorrhage Nalbuphine HCl (Nalbuphine 10 Mg/1 Ml Vial) 10 mg IVPUSH Q1H PRN PRN Reason: Pain (severe 7-10) Oxycodone HCl (Oxycodone 5 Mg Tab) 5 mg PO Q2H PRN PRN Reason: Pain (severe 7-10) Sodium Chloride (Sodium Chloride 0.9% 10 Ml Sdv) 10 ml IV ASDIRECTED PRN PRN Reason: IV Use Sterile Water (Water For Irrigation,Sterile 1,000 Ml Container) 1,000 ml IRR ASDIRECTED PRN PRN Reason: delivery Witch Dolores (Witch Dolores Medicated Pads 40/Jar) 1 pad TOP ASDIRECTED PRN PRN Reason: comfort care Discontinued Medications Bupivacaine HCl (Bupivacaine 0.25% 10 Ml Sdv) Confirm Administered Dose 10 ml .ROUTE .STK-MED ONE Stop: 06/26/21 12:17 Ampicillin Sodium 2 gm/ Sodium (Chloride) 100 mls @ 200 mls/hr IV ONETIME ONE Stop: 06/26/21 11:59 Last Admin: 06/26/21 11:45 Dose: 200 mls/hr Documented by: Ropivacaine (Naropin 0.2%) Confirm Administered Dose 200 mls @ as directed .ROUTE .STK-MED ONE Stop: 06/26/21 12:17 Ampicillin Sodium 1 gm/ Sodium (Chloride) 50 mls @ 100 mls/hr IV Q4H REPLACED BY [facility] Last Admin: 06/26/21 15:30 Dose: 100 mls/hr Documented by: Sodium Chloride (Sodium Chloride 0.9% 10 Ml Syringe) 10 ml FLUSH ASDIRECTED PRN PRN Reason: Keep Vein Open Sodium Chloride (Sodium Chloride 0.9% 2.5 Ml Syringe) 2.5 ml FLUSH ASDIRECTED PRN PRN Reason: Keep Vein Open - Problem List & Annotations (1) (normal spontaneous vaginal delivery) SNOMED Code(s): 51370685, 257305728 Code(s): O80 - ENCOUNTER FOR FULL-TERM UNCOMPLICATED DELIVERY Status: Acute Priority: High Current Visit: No - Problem List Review Problem List Initiated/Reviewed/Updated: Yes - My Orders Last 24 Hours: My Active Orders 06/26/21 11:16 Patient Status [ADT] Routine May Shower [RC] ASDIRECTED Up ad Yue [RC] ASDIRECTED 06/26/21 11:28 RPR (SYPHILIS SERO) W/ RFLX [REF] Routine TYPE AND SCREEN [BBK] Routine 06/26/21 11:53 Butorphanol [Stadol] 1 mg IVPUSH Q1H PRN Carboprost Tromethamine [Hemabate DS] 250 mcg IM ASDIRECTED PRN Lidocaine 1% [Xylocaine 1%] 50 ml INJECT ONETIME PRN Methylergonovine [Methergine] 0.2 mg IM ASDIRECTED PRN Nalbuphine [Nubain] 10 mg IVPUSH Q1H PRN Sodium Chloride 0.9% [Normal Saline] 10 ml IV ASDIRECTED PRN Tranexamic Acid [Cyklokapron] 1,000 mg Sodium Chloride 0.9% [Normal Saline] 100 ml IV ONETIME Water For Irrigation,Sterile [Sterile Water for Irrigation] 1,000 ml IRR ASDIRECTED PRN miSOPROStoL [Cytotec] 200 mcg PO ONETIME PRN 06/26/21 12:00 Lactated Ringers [Ringers, Lactated] 1,000 ml IV ASDIRECTED Oxytocin/0.9 % Sodium Chloride [Oxytocin 30 Unit/500 ML-NS] 30 unit in 500 ml IV TITRATE 06/26/21 17:37 Patient Status [ADT] Routine May Shower [RC] ASDIRECTED Up ad Yue [RC] ASDIRECTED Vital Signs [RC] PER UNIT ROUTINE Acetaminophen [Tylenol Extra Strength] 1,000 mg PO Q4H PRN Acetaminophen [Tylenol Extra Strength] 500 mg PO Q4H PRN Benzocaine/Menthol [Dermoplast Pain Relief 20%-0.5% [place]] 78 gm TOP ASDIRECTED PRN Docusate Sodium [Colace] 100 mg PO Q12H PRN Ibuprofen [Motrin] 400 mg PO Q4H PRN Ibuprofen [Motrin] 800 mg PO Q6H PRN Lanolin [Lansinoh HPA] See Dose Instructions TOP ASDIRECTED PRN bisacodyL [Dulcolax] 10 mg RECTAL ONETIME PRN oxyCODONE 5 mg PO Q2H PRN witch Dolores [Tucks] 1 pad TOP ASDIRECTED PRN Assess Lochia [WOMSER] Per Unit Routine Assess Uterine Involution [WOMSER] Per Unit Routine Peripheral IV Discontinue [OM.PC] Routine Resuscitation Status Routine 06/27/21 05:11 HEMOGLOBIN/HEMATOCRIT,HH [HEME] Timed - Assessment Assessment:: 41 yo P9009 s/p PPD 0 ,GBS positive received Amp X 2 doses Rubella Immune
--- NOTE | 2021-06-26 21:43 | PCM48HPAN ---
Post Anesthesia Note - EVALUATION WITHIN 48HRS OF ANESTHETIC Vital Signs in Normal Range: Yes Patient Participated in Evaluation: Yes Respiratory Function Stable: Yes Airway Patent: Yes Cardiovascular Function Stable: Yes Hydration Status Stable: Yes Pain Control Satisfactory: Yes Nausea and Vomiting Control Satisfactory: Yes Mental Status Recovered: Yes
--- NOTE | 2021-06-27 09:05 | PCM.PNPP ---
- General Info Date of Service: 06/27/21 Functional Status: Reports: Pain Controlled, Tolerating Diet, Ambulating, Urinating - Review of Systems General: Reports: No Symptoms Pulmonary: Denies: Shortness of Breath Cardiovascular: Denies: Chest Pain, Palpitations, Lightheadedness Gastrointestinal: Denies: Abdominal Pain, Nausea, Vomiting Genitourinary: Denies: Flank Pain Musculoskeletal: Reports: No Symptoms Skin: Reports: No Symptoms Neurological: Reports: No Symptoms Psychiatric: Reports: No Symptoms - General Info Date of Service: 06/27/21 - Patient Data Vital Signs - Most Recent: Last Vital Signs Temp 35.9 C L 06/27/21 04:00 Pulse 66 06/27/21 04:00 Resp 18 06/27/21 04:00 BP 101/45 L 06/27/21 04:00 Pulse Ox 97 06/27/21 04:00 Weight - Most Recent: 122.016 kg Lab Results - Last 24 Hours: Laboratory Results - last 24 hr 06/26/21 06/26/21 06/26/21 Range/Units 11:28 11:28 11:28 WBC 11.74 H (4.0-11.0) K/uL RBC 3.90 L (4.30-5.90) M/uL Hgb 11.7 L (12.0-16.0) g/dL Hct 34.3 L (36.0-46.0) % MCV 87.9 (80.0-98.0) fL MCH 30.0 (27.0-32.0) pg MCHC 34.1 (31.0-37.0) g/dL RDW Std Deviation 54.1 (28.0-62.0) fl RDW Coeff of Danyell 17 H (11.0-15.0) % Plt Count 228 (150-400) K/uL MPV 11.00 (7.40-12.00) fL Nucleated RBC % 0.0 /100WBC Nucleated RBCs # 0 K/uL Cord VBG pH (7.25-7.45) Cord VBG Base Excess (-10--2) SARS-CoV-2 RNA (KING) NEGATIVE (NEGATIVE) Blood Type A POSITIVE Antibody Screen POSITIVE Antibody Identification Anti-Jka Antigen Typing Jka Antigen - NEGATIVE Crossmatch See Detail 06/26/21 06/27/21 Range/Units 15:56 05:00 WBC (4.0-11.0) K/uL RBC (4.30-5.90) M/uL Hgb 10.3 L (12.0-16.0) g/dL Hct 30.6 L (36.0-46.0) % MCV (80.0-98.0) fL MCH (27.0-32.0) pg MCHC (31.0-37.0) g/dL RDW Std Deviation (28.0-62.0) fl RDW Coeff of Danyell (11.0-15.0) % Plt Count (150-400) K/uL MPV (7.40-12.00) fL Nucleated RBC % /100WBC Nucleated RBCs # K/uL Cord VBG pH 7.354 (7.25-7.45) Cord VBG Base Excess -2 (-10--2) SARS-CoV-2 RNA (KING) (NEGATIVE) Blood Type Antibody Screen Antibody Identification Antigen Typing Crossmatch Med Orders - Current: Current Medications Acetaminophen (Acetaminophen 500 Mg Tab) 500 mg PO Q4H PRN PRN Reason: Pain (mild 1-3) Acetaminophen (Acetaminophen 500 Mg Tab) 1,000 mg PO Q4H PRN PRN Reason: Pain (mild 1-3) Last Admin: 06/26/21 21:09 Dose: 1,000 mg Documented by: Benzocaine/Menthol (Benzocaine/Menthol 20%-0.5% [place] 78 Gm Cannister) 78 gm TOP ASDIRECTED PRN PRN Reason: Perineal Comfort Measure Last Admin: 06/26/21 21:10 Dose: 1 bottle Documented by: Bisacodyl (Bisacodyl 10 Mg Supp) 10 mg RECTAL ONETIME PRN PRN Reason: Constipation Butorphanol Tartrate (Butorphanol 1 Mg/Ml Sdv) 1 mg IVPUSH Q1H PRN PRN Reason: Pain (severe 7-10) Carboprost Tromethamine (Carboprost Tromethamine 250 Mcg/1 Ml Amp) 250 mcg IM ASDIRECTED PRN PRN Reason: Post Hemorrhage Docusate Sodium (Docusate Sodium 100 Mg Cap) 100 mg PO Q12H PRN PRN Reason: Constipation Emollient Ointment (Lanolin 100% Cream 7 Gm Tube) 0 gm TOP ASDIRECTED PRN PRN Reason: Sore Nipples Last Admin: 06/26/21 21:10 Dose: 1 applic Documented by: Lactated Ringer's (Ringers, Lactated) 1,000 mls @ 150 mls/hr IV ASDIRECTED JENNIFER Last Admin: 06/26/21 12:55 Dose: 150 mls/hr Documented by: Oxytocin/Sodium Chloride (Oxytocin 30 Unit/500 Ml-Ns) 30 unit in 500 mls @ 999 mls/hr IV TITRATE [facility] Last Admin: 06/26/21 16:02 Dose: 999 mls/hr Documented by: Tranexamic Acid 1,000 mg/ (Sodium Chloride) 110 mls @ 660 mls/hr IV ONETIME PRN PRN Reason: Bleeding Ibuprofen (Ibuprofen 400 Mg Tab) 400 mg PO Q4H PRN PRN Reason: Pain (mild 1-3) Ibuprofen (Ibuprofen 800 Mg Tab) 800 mg PO Q6H PRN PRN Reason: Cramping Last Admin: 06/27/21 03:57 Dose: 800 mg Documented by: Lidocaine HCl (Lidocaine 1% 50 Ml Mdv) 50 ml INJECT ONETIME PRN PRN Reason: Laceration repair Methylergonovine Maleate (Methylergonovine 0.2 Mg/1 Ml Amp) 0.2 mg IM ASDIRECTED PRN PRN Reason: Post Hemorrhage Last Admin: 06/26/21 16:07 Dose: 0.2 mg Documented by: Misoprostol (Misoprostol 200 Mcg Tab) 200 mcg PO ONETIME PRN PRN Reason: Post Hemorrhage Nalbuphine HCl (Nalbuphine 10 Mg/1 Ml Vial) 10 mg IVPUSH Q1H PRN PRN Reason: Pain (severe 7-10) Oxycodone HCl (Oxycodone 5 Mg Tab) 5 mg PO Q2H PRN PRN Reason: Pain (severe 7-10) Sodium Chloride (Sodium Chloride 0.9% 10 Ml Sdv) 10 ml IV ASDIRECTED PRN PRN Reason: IV Use Sterile Water (Water For Irrigation,Sterile 1,000 Ml Container) 1,000 ml IRR ASDIRECTED PRN PRN Reason: delivery Witch Dolores (Witch Dolores Medicated Pads 40/Jar) 1 pad TOP ASDIRECTED PRN PRN Reason: comfort care Last Admin: 06/26/21 21:10 Dose: 1 tub Documented by: Discontinued Medications Bupivacaine HCl (Bupivacaine 0.25% 10 Ml Sdv) Confirm Administered Dose 10 ml .ROUTE .STK-MED ONE Stop: 06/26/21 12:17 Last Admin: 06/26/21 23:32 Dose: Not Given Documented by: Ampicillin Sodium 2 gm/ Sodium (Chloride) 100 mls @ 200 mls/hr IV ONETIME ONE Stop: 06/26/21 11:59 Last Admin: 06/26/21 11:45 Dose: 200 mls/hr Documented by: Ropivacaine (Naropin 0.2%) Confirm Administered Dose 200 mls @ as directed .ROUTE .STK-MED ONE Stop: 06/26/21 12:17 Last Admin: 06/26/21 23:32 Dose: Not Given Documented by: Ampicillin Sodium 1 gm/ Sodium (Chloride) 50 mls @ 100 mls/hr IV Q4H JENNIFER Last Admin: 06/26/21 15:30 Dose: 100 mls/hr Documented by: Sodium Chloride (Sodium Chloride 0.9% 10 Ml Syringe) 10 ml FLUSH ASDIRECTED PRN PRN Reason: Keep Vein Open Sodium Chloride (Sodium Chloride 0.9% 2.5 Ml Syringe) 2.5 ml FLUSH ASDIRECTED PRN PRN Reason: Keep Vein Open - Infant Interaction Support Person: - Recovery Exam Fundal Tone: Firm Fundal Level: 3 Fingerbreadths Below Umbilicus Fundal Placement: Midline Lochia Amount: Scant Lochia Color: Rubra/Red Perineum Description: Intact, Minimal Bruising/Swelling Episiotomy/Laceration: None Bladder Status: Voiding Urinary Elimination: Voided - Exam General: Alert, Oriented Lungs: Normal Respiratory Effort Cardiovascular: Regular Rate, Regular Rhythm GI/Abdominal Exam: Normal Bowel Sounds, Soft Extremities: Pedal Edema (trace). No: Damaris's Sign Skin: Warm, Dry, Intact Neurological: No New Focal Deficit Psy/Mental Status: Alert, Normal Affect, Normal Mood - Problem List & Annotations (1) (normal spontaneous vaginal delivery) SNOMED Code(s): 51548847, [id number] Code(s): O80 - ENCOUNTER FOR FULL-TERM UNCOMPLICATED DELIVERY Status: Acute Priority: High Current Visit: No - Problem List Review Problem List Initiated/Reviewed/Updated: Yes - My Orders Last 24 Hours: My Active Orders 06/27/21 09:03 Ready for Discharge [RC] PER UNIT ROUTINE - Assessment Assessment:: 41 yo P9009 s/p PPD 1 ,GBS positive received Amp X 2 doses Rubella Immune - Plan Plan:: VS and labs reassuring. Patient doing well and would like to go home later today. Discharge instructions reviewed. Follow up at [facility] 4 weeks. Discharge to home.
--- NOTE | 2021-06-27 10:23 | OR ---
SURGEON: NIKKI LEACH DATE OF PROCEDURE: 06/26/2021 PREOPERATIVE DIAGNOSES: 1. A 41-year-old 9, para 8-0-0-8, at 39 weeks 4 days, admitted in early labor. 2. Grand multiparity. 3. Group B Streptococcus positive. POSTOPERATIVE DIAGNOSES: 1. A 41-year-old 9, para 8-0-0-8, at 39 weeks 4 days, admitted in early labor. 2. Grand multiparity. 3. Group B Streptococcus positive. PROCEDURE: Normal spontaneous vaginal delivery. ESTIMATED BLOOD LOSS: 100. IV FLUIDS: Pitocin running. ANESTHESIA: Epidural. NOTES AND FINDINGS: A live female delivered at 1556. scores of 8 and 9. Weight - 7lb 7oz. Three-vessel cord noted. Nuchal cord which was reduced. BRIEF HISTORY: She is a 41-year-old G9, P 8-0-0-8 at 39 weeks 4 days, who had a low-risk care. She is grand multipara, hypothyroidism, depression, and GBS positive. However, she had an uncomplicated course. She came in complaining of contractions. She was noted to be 5 cm dilated. She wanted epidural, which she received. She had a normal labor curve. Then, she was complaining of pushing, so she was noted to be full. Membrane was then ruptured at this time. She received 2 doses of ampicillin prior to the rupture of membranes. The patient was encouraged to push. PROCEDURE IN DETAIL: With good pushing effort, she delivered the head and subsequently the anterior and posterior shoulder. There was a nuchal cord that was attempted to be reduced with some difficulty. So, the shoulder was delivered anterior and the posterior shoulder was delivered, and the cord was reduced. The body was delivered without difficulty. The infant was placed on the maternal abdomen. The nose and mouth were suctioned by the nurses. Delayed cord clamping was observed. The clamp was cut by the father. Pitocin was running at this time. With controlled cord traction, the placenta was delivered without any difficulty. There was no blood noted. The perineum was noted to be intact. All instrument and pad counts were correct x2. KRISH / MEGA /[id number] [facility]ENTERRadha
[2021-06-27 16:15] VITALS: BP 107/67; PULSE 66
== END 2021-06-27 19:22 | disposition home or self-care (01) | DRG 560 ==
LOC: MW.OBCHECK 11:00 → MW.OB 11:06 → MW.OBCHECK 11:16 → OBSVTOIN 15:56 → MW.OB 21:00
PROVIDERS: ADMIT Obstetrics & Gynecology; ATTEND Obstetrics & Gynecology
PROC: 10E0XZZ Delivery of Products of Conception, External Approach (ICD-10-PCS; principal; 2021-06-26)
PROC: 10907ZC Drainage of Amniotic Fluid, Therapeutic from Products of Conception, Via Natural or Artificial Opening (ICD-10-PCS; 2021-06-26)
PROC: 3E0R3BZ Introduction of Anesthetic Agent into Spinal Canal, Percutaneous Approach (ICD-10-PCS; 2021-06-26)
PROC: 4A1HXCZ Monitoring of Products of Conception, Cardiac Rate, External Approach (ICD-10-PCS; 2021-06-26)
DX: O99.824 Streptococcus B carrier state complicating childbirth (principal); Z3A.37 37 weeks gestation of pregnancy; Z37.0 Single live birth; O99.284 Endocrine, nutritional and metabolic diseases complicating childbirth; E03.9 Hypothyroidism, unspecified; Z20.822 Contact with and (suspected) exposure to COVID-19
CPT/HCPCS: 01967; 36415; 51702; 59025; 59409; 82803; 85014; 85018; 85027; 86592; 86850; 86870; 86900; 86901; 86902; 86920; 86921; 86922; A9270-GY; J0290; J2210; J2590; J2795; J3490; J7120; U0002

== ENCOUNTER 2024-07-16 14:51 | Inpatient (IN) | payer BC ==
[2024-07-16] MEDS ORDERED: Sodium Chloride 0.9% 10 ML Syringe FLUSH PRN (15:18)
[2024-07-16] MEDS ORDERED: Sodium Chloride 0.9% 2.5 ML Syringe FLUSH PRN (15:18)
[2024-07-16] MEDS ORDERED: Misoprostol 200 MCG Tab PO PRN (15:18)
[2024-07-16] MEDS ORDERED: Terbutaline 1 MG/ML SDV SUBCUT PRN (15:18)
[2024-07-16] MEDS ORDERED: Water For Irrigation,Sterile 1,000 ML Container IRR PRN (15:18)
[2024-07-16] MEDS ORDERED: Sodium Chloride 0.9% 20 ML SDV IV PRN (15:18)
[2024-07-16] MEDS ORDERED: Methylergonovine 0.2 MG/1 ML Amp IM PRN (15:18)
[2024-07-16] MEDS ORDERED: Carboprost Tromethamine 250 MCG/1 mL Vial IM PRN (15:18)
[2024-07-16] MEDS ORDERED: Butorphanol 2 MG/ML SDV IVPUSH PRN (15:18)
[2024-07-16] MEDS ORDERED: Lidocaine 1% 50 ML MDV INJECT PRN (15:18)
[2024-07-16] MEDS: Lactated Ringers 1,000 ML IV SCH (15:45)
[2024-07-16] MEDS: Ampicillin 2 GM in Sodium Chloride 0.9% 100 ML IV ONE (16:12)
[2024-07-16 16:15] LABS: HEMATOCRIT 32.3 % (37.0-47.0); HEMOGLOBIN 11.2 g/dL (12.0-16.0); MEAN CORPUSCULAR HEMOGLOBIN 31.4 pg (28.0-32.0); MEAN CORPUSCULAR HGB CONC 34.7 g/dL (32.0-36.0); MEAN CORPUSCULAR VOLUME 90.5 fL (83.0-99.0); MEAN PLATELET VOLUME 10.6 fL (9.4-12.3); PLATELET COUNT,PLT 178 K/uL (150-400); RED BLOOD CELL COUNT 3.57 M/uL (4.10-5.30); WHITE BLOOD CELL COUNT,WBC 10.26 K/uL (3.9-11.3)
[2024-07-16] MEDS: Oxytocin/0.9 % Sodium Chloride 30 UNIT/500 ML BAG IV SCH (16:26)
[2024-07-16] MEDS ORDERED: Phenylephrine HCl In 0.9% NaCl 1 MG/10 ML Syringe ONE (18:34)
[2024-07-16] MEDS ORDERED: Bupivacaine 0.5% 10 ML SDV ONE (18:34)
[2024-07-16] MEDS ORDERED: ePHEDrine 50 MG/ML SDV IVPUSH PRN (19:02)
[2024-07-16] MEDS: Ropivacaine HCl/PF 200 ML ONE (19:02)
[2024-07-16] MEDS ORDERED: Phenylephrine HCl In 0.9% NaCl 1 MG/10 ML Syringe IVPUSH PRN (19:02)
[2024-07-16] MEDS ORDERED: Bupivacaine 0.5% 10 ML SDV INJECT ONE (19:03)
[2024-07-16] MEDS ORDERED: ePHEDrine 50 MG/ML SDV IM PRN (19:03)
[2024-07-16] MEDS ORDERED: dexmedeTOMIDine HCl 200 MCG/2 ML SDV EPIDUR SCH (19:15)
[2024-07-16] MEDS: Ampicillin 1 GM in Sodium Chloride 0.9% 50 ML IV SCH (19:41)
[2024-07-17] MEDS: Ropivacaine HCl/PF 400 MG in Premix Bag 1 BAG EPIDUR SCH (11:55)
[2024-07-17] MEDS: Oxytocin/0.9 % Sodium Chloride 30 UNIT/500 ML BAG IV SCH (13:55)
[2024-07-17] MEDS ORDERED: oxyCODONE 5 MG Tab PO PRN (13:56)
[2024-07-17] MEDS ORDERED: Ibuprofen 800 MG Tab PO PRN (13:56)
[2024-07-17] MEDS ORDERED: Acetaminophen 500 MG Tab PO PRN (13:56)
[2024-07-17] MEDS ORDERED: Lanolin 100% Cream 7 GM Tube TOP PRN (13:56)
[2024-07-17 14:41] LABS: PH,UMBILICAL ARTERIAL 7.285 (7.18-7.38); PH,UMBILICAL VENOUS 7.405 (7.25-7.45)
[2024-07-17] MEDS: Witch Hazel Medicated Pads 40/Jar TOP PRN (16:01)
[2024-07-17] MEDS: Benzocaine/Menthol 20%-0.5% Spray 78 GM Cannister TOP PRN (16:01)
[2024-07-18] MEDS: Docusate Sodium 100 MG Cap PO PRN (00:19)
[2024-07-18 06:55] LABS: HEMOGLOBIN 8.8 g/dL (12.0-16.0)
[2024-07-18 16:25] VITALS: BP 117/56; PULSE 76
== END 2024-07-18 16:15 | disposition home or self-care (01) | DRG 560 ==
LOC: MW.OB 14:51 → MW.OBCHECK 14:51 → MW.OB 15:18 → MW.OBCHECK 15:18 → OBSVTOIN 07-17 13:41 → MW.OB 07-17 16:32
PROVIDERS: ADMIT Obstetrics & Gynecology; ATTEND Obstetrics & Gynecology
PROC: 3E0R3BZ Introduction of Anesthetic Agent into Spinal Canal, Percutaneous Approach (ICD-10-PCS; principal; 2024-07-17)
PROC: 00HU33Z Insertion of Infusion Device into Spinal Canal, Percutaneous Approach (ICD-10-PCS; 2024-07-17)
PROC: 10E0XZZ Delivery of Products of Conception, External Approach (ICD-10-PCS; 2024-07-17)
PROC: 3E033VJ Introduction of Other Hormone into Peripheral Vein, Percutaneous Approach (ICD-10-PCS; 2024-07-17)
PROC: 10907ZC Drainage of Amniotic Fluid, Therapeutic from Products of Conception, Via Natural or Artificial Opening (ICD-10-PCS; 2024-07-17)
DX: O99.824 Streptococcus B carrier state complicating childbirth (principal); Z37.0 Single live birth; D62 Acute posthemorrhagic anemia; O99.344 Other mental disorders complicating childbirth; O99.284 Endocrine, nutritional and metabolic diseases complicating childbirth; E03.9 Hypothyroidism, unspecified; F32.A Depression, unspecified; O99.214 Obesity complicating childbirth; O99.02 Anemia complicating childbirth; O69.81X0 Labor and delivery complicated by cord around neck, without compression, not applicable or unspecified; Z90.89 Acquired absence of other organs; Z3A.38 38 weeks gestation of pregnancy
CPT/HCPCS: 36415; 51702; 59025; 82803; 85014; 85018; 85027; 86592; A9270-GY; J0290; J0665; J2371; J2590; J2795; J3490; J7120

== ENCOUNTER 2025-02-18 10:01 | Day surgery (SDC) | payer BC ==
[~2025-02-18 10:01] MED LIST: Sodium Chloride 0.9% 10 ML Syringe FLUSH PRN; Sodium Chloride 0.9% 2.5 ML Syringe FLUSH PRN; Sodium Chloride 0.9% 20 ML SDV IV PRN
[2025-02-18] MEDS: Lactated Ringers 1,000 ML IV SCH (10:55)
[2025-02-18] MEDS ORDERED: Lidocaine 2% 5 ML SDV ONE (12:30)
[2025-02-18] MEDS ORDERED: propofoL 500 MG/50 ML 50 ML ONE (12:30)
[2025-02-18 14:40] VITALS: BP 124/66; PULSE 69
== END 2025-02-18 14:08 | disposition home or self-care (01) ==
LOC: MW.SDS 10:01
PROVIDERS: ATTEND Surgery
DX: K29.50 Unspecified chronic gastritis without bleeding (principal); K31.89 Other diseases of stomach and duodenum; K44.9 Diaphragmatic hernia without obstruction or gangrene; K64.3 Fourth degree hemorrhoids; E03.9 Hypothyroidism, unspecified; F32.A Depression, unspecified; Z79.890 Hormone replacement therapy; Z79.899 Other long term (current) drug therapy
CPT/HCPCS: 43239; 45380; 81025; J2003; J2704; J7120; 00813

== ENCOUNTER 2025-04-10 23:59 | Emergency (ER) | payer BC ==
[2025-04-11 00:19] VITALS: BP 126/88; PULSE 98
== END 2025-04-11 00:36 | disposition home or self-care (01) ==
LOC: MW.ED 23:59
DX: N61.0 Mastitis without abscess (principal); E66.9 Obesity, unspecified; E03.9 Hypothyroidism, unspecified; Z79.899 Other long term (current) drug therapy; Z79.890 Hormone replacement therapy
CPT/HCPCS: 99283